=== PATIENT | male | born 1970 | race Hispanic/Latino ===

== ENCOUNTER 2023-01-07 17:59 | Emergency (ER) | payer OTHER ==
[~2023-01-07] VITALS: Ht 172.7 cm; Wt 70.3 kg
[2023-01-07] MEDS ORDERED: AMOX/CLAV 875/125MG TAB PO ONE ×2 (19:41→20:00)
[2023-01-07] MEDS ORDERED: TETANUS/DIPHTHERIA TOXOID [ADULT] 0.5 ML VIAL IM ONE ×2 (19:42→20:00)
[2023-01-07] MEDS ORDERED: AMOX-426 PO (20:50)
[2023-01-07] MEDS ORDERED: RABIES VACC, HUMAN DIPLOID/PF 2.5 UNIT ML IM SCH (21:00)
[2023-01-07 22:10] VITALS: BP 135/78
== END 2023-01-07 22:20 | disposition home or self-care (01) ==
LOC: EDH 17:59
DX: S61.552A Open bite of left wrist, initial encounter (principal); W54.0XXA Bitten by dog, initial encounter; Y93.89 Activity, other specified; Y92.89 Other specified places as the place of occurrence of the external cause; Y99.8 Other external cause status
CPT/HCPCS: 90471; 90472; 90675; 90714